=== PATIENT | female | born 1955 | race Hispanic/Latino ===

== ENCOUNTER 2017-09-03 12:58 | Emergency (ER) | payer MEDICAID ==
[2017-09-03] MEDS ORDERED: ONDANSETRON HCL 4 MG/2 ML VIAL ONE (13:30)
[2017-09-03] MEDS ORDERED: MORPHINE SULFATE 4 MG/1ML SYG ONE (13:31)
== END 2017-09-03 15:57 | disposition home or self-care (01) ==
LOC: EDH 12:58
DX: S20.212A Contusion of left front wall of thorax, initial encounter (principal); E11.9 Type 2 diabetes mellitus without complications; I10 Essential (primary) hypertension; E78.5 Hyperlipidemia, unspecified; Z79.4 Long term (current) use of insulin; W01.0XXA Fall on same level from slipping, tripping and stumbling without subsequent striking against object, initial encounter; Y93.89 Activity, other specified; Y92.89 Other specified places as the place of occurrence of the external cause; Y99.8 Other external cause status
CPT/HCPCS: 71101; 96374; 96375; 99284; J2270; J2405

== ENCOUNTER 2017-10-10 14:37 | Emergency (ER) | payer MEDICAID | END 2017-10-10 15:13 | disposition home or self-care (01) | LOC: EDH 14:37 | DX: J30.9 Allergic rhinitis, unspecified (principal); E11.9 Type 2 diabetes mellitus without complications; E78.5 Hyperlipidemia, unspecified; I10 Essential (primary) hypertension; Z79.4 Long term (current) use of insulin; Z87.891 Personal history of nicotine dependence | CPT/HCPCS: 99281 ==

== ENCOUNTER 2018-05-31 07:20 | Emergency (ER) | payer MEDICAID ==
[2018-05-31 08:05] LABS: RAPID GROUP A STREP NEGATIVE (NEGATIVE)
== END 2018-05-31 09:25 | disposition home or self-care (01) ==
LOC: EDH 07:20
DX: J30.9 Allergic rhinitis, unspecified (principal); E10.9 Type 1 diabetes mellitus without complications; I10 Essential (primary) hypertension; E78.5 Hyperlipidemia, unspecified; Z90.710 Acquired absence of both cervix and uterus; Z87.891 Personal history of nicotine dependence; Z88.7 Allergy status to serum and vaccine
CPT/HCPCS: 87804; 87880

== ENCOUNTER 2018-08-10 14:14 | Emergency (ER) | payer MEDICAID ==
[2018-08-10] MEDS ORDERED: ASPIRIN 325 MG TABLET ONE (14:30)
[2018-08-10 14:45] LABS: BASOPHILS % (AUTO) 0.5 % (0.0-5.0); EOSINOPHILS % (AUTO) 2.5 % (0.0-8.0); HEMATOCRIT 32.7 % (36-48); LYMPHOCYTES % (AUTO) 23.5 % (21.0-51.0); MEAN CORPUSCULAR HEMOGLOBIN 23.7 pg (27.0-33.0); MEAN CORPUSCULAR HGB CONC 32.3 g/dL (32.0-36.0); MEAN CORPUSCULAR VOLUME 73.6 fL (79-99); NEUTROPHILS % (AUTO) 65.5 % (40.0-77.0); NUCLEATED RED BLOOD CELLS 0.1 % (0.0-0.19); PLATELET COUNT (AUTO) 304 K/uL (130-400); RED BLOOD CELL COUNT(AUTO) 4.45 MIL/uL (4.00-5.50); RED CELL DISTRIBUTION WIDTH 19.4 % (11.0-15.5); WHITE BLOOD COUNT (AUTO) 6.9 K/uL (4.8-10.8)
[2018-08-10 15:10] LABS: CREATININE 0.6 mg/dL (0.5-1.5); POTASSIUM 3.9 mmol/L (3.5-5.1)
[2018-08-10 15:15] LABS: BILIRUBIN,TOTAL 0.4 mg/dL (0.2-1.0); TOTAL PROTEIN, SERUM 7.6 g/dL (6.0-8.3)
[2018-08-10] MEDS ORDERED: FAMOTIDINE/PF 20 MG/2 ML VIAL IV ONE (15:54)
[2018-08-10] MEDS ORDERED: IOHEXOL 350 MG/ML 100ML INFUS..BTL IV ONE (16:53)
== END 2018-08-10 19:24 | disposition home or self-care (01) ==
LOC: EDH 14:14
DX: R07.89 Other chest pain (principal); E11.9 Type 2 diabetes mellitus without complications; I10 Essential (primary) hypertension; E78.5 Hyperlipidemia, unspecified; Z90.710 Acquired absence of both cervix and uterus; Z88.7 Allergy status to serum and vaccine
CPT/HCPCS: 36415; 71046; 71275; 80053; 82550; 83690; 84484 ×2; 85025; 85378; 93005 ×2; 93970; 96374; 99285; J3490; Q9967

== ENCOUNTER 2018-10-25 10:40 | Emergency (ER) | payer MEDICAID ==
[2018-10-25 11:40] LABS: APPEARANCE,URINE CLOUDY (CLEAR); BILIRUBIN,URINE NEGATIVE (NEGATIVE); COLOR,URINE YELLOW (YELLOW); GLUCOSE, URINE (UA) >=1000 mg/dL (NEGATIVE); KETONES,URINE NEGATIVE (NEGATIVE); LEUKOCYTE ESTERASE ,URINE NEGATIVE (NEGATIVE); NITRATE,URINE NEGATIVE (NEGATIVE); OCCULT BLOOD,URINE NEGATIVE (NEGATIVE); PH,URINE 7.5 (5.0-8.0); PROTEIN,URINE NEGATIVE (NEGATIVE); UROBILINOGEN,URINE 0.2 mg/dL (0.2-1.0)
[2018-10-25 11:42] LABS: BASOPHILS % (AUTO) 0.5 % (0.0-5.0); EOSINOPHILS % (AUTO) 1.6 % (0.0-8.0); HEMATOCRIT 33.8 % (36-48); LYMPHOCYTES % (AUTO) 20.7 % (21.0-51.0); MEAN CORPUSCULAR HEMOGLOBIN 24.1 pg (27.0-33.0); MEAN CORPUSCULAR HGB CONC 32.2 g/dL (32.0-36.0); MEAN CORPUSCULAR VOLUME 74.6 fL (79-99); MONOCYTES % (AUTO) 6.9 % (3.0-13.0); NEUTROPHILS % (AUTO) 70.3 % (40.0-77.0); PLATELET COUNT (AUTO) 302 K/uL (130-400); RED BLOOD CELL COUNT(AUTO) 4.53 MIL/uL (4.00-5.50); RED CELL DISTRIBUTION WIDTH 17.2 % (11.0-15.5); WHITE BLOOD COUNT (AUTO) 6.9 K/uL (4.8-10.8)
[2018-10-25 11:49] LABS: BACTERIA,URINE Many /HPF (None Seen); RBC,URINE 0-1 /HPF (0-1)
[2018-10-25 11:55] LABS: ALBUMIN 3.1 g/dL (3.5-5.0); BILIRUBIN,TOTAL 0.5 mg/dL (0.2-1.0); POTASSIUM 4.5 mmol/L (3.5-5.1)
[2018-10-25 11:59] LABS: CREATININE 0.7 mg/dL (0.5-1.5)
[2018-10-25] MEDS ORDERED: SODIUM CHLORIDE 0.9% 1000ML 1,000 ML IV ONE (13:09)
== END 2018-10-25 14:48 | disposition home or self-care (01) ==
LOC: EDH 10:40
DX: E11.65 Type 2 diabetes mellitus with hyperglycemia (principal); I10 Essential (primary) hypertension; E78.5 Hyperlipidemia, unspecified; Z87.891 Personal history of nicotine dependence; Z98.890 Other specified postprocedural states; Z88.7 Allergy status to serum and vaccine; Z79.4 Long term (current) use of insulin
CPT/HCPCS: 36415; 80053; 81001; 82550; 82948 ×2; 84484; 85025; 93005; 96360; 99285; J7030

== ENCOUNTER 2018-12-23 06:57 | Emergency (ER) | payer OTHER ==
[2018-12-23 07:38] LABS: BASOPHILS % (AUTO) 0.4 % (0.0-5.0); EOSINOPHILS % (AUTO) 1.8 % (0.0-8.0); LYMPHOCYTES % (AUTO) 21.8 % (21.0-51.0); MEAN CORPUSCULAR HEMOGLOBIN 23.9 pg (27.0-33.0); MEAN CORPUSCULAR HGB CONC 31.8 g/dL (32.0-36.0); MEAN CORPUSCULAR VOLUME 75.3 fL (79-99); MONOCYTES % (AUTO) 7.1 % (3.0-13.0); NEUTROPHILS % (AUTO) 68.9 % (40.0-77.0); PLATELET COUNT (AUTO) 322 K/uL (130-400); RED BLOOD CELL COUNT(AUTO) 4.65 MIL/uL (4.00-5.50); RED CELL DISTRIBUTION WIDTH 18.8 % (11.0-15.5); WHITE BLOOD COUNT (AUTO) 7.5 K/uL (4.8-10.8)
[2018-12-23 07:53] LABS: CREATININE 0.6 mg/dL (0.5-1.5); POTASSIUM 4.2 mmol/L (3.5-5.1)
[2018-12-23 07:55] LABS: BILIRUBIN,TOTAL 0.4 mg/dL (0.2-1.0); TOTAL PROTEIN, SERUM 7.5 g/dL (6.0-8.3)
[2018-12-23] MEDS ORDERED: SODIUM CHLORIDE 0.9% 1000ML 1,000 ML IV ONE (08:12)
[2018-12-23 10:23] LABS: APPEARANCE,URINE Clear (CLEAR); BILIRUBIN,URINE Negative (NEGATIVE); COLOR,URINE Yellow (YELLOW); GLUCOSE, URINE (UA) Negative (NEGATIVE); KETONES,URINE Negative (NEGATIVE); LEUKOCYTE ESTERASE ,URINE Small (NEGATIVE); NITRATE,URINE Negative (NEGATIVE); OCCULT BLOOD,URINE Negative (NEGATIVE); PH,URINE 5.5 (5.0-8.0); PROTEIN,URINE Negative (NEGATIVE)
[2018-12-23 10:27] LABS: BACTERIA,URINE Rare /HPF (None Seen); RBC,URINE 0-1 /HPF (0-1); SQUAMOUS EPITHELIAL CELL,UR Rare /HPF (0-2); WBC,URINE 0-1 /HPF (0-1)
== END 2018-12-23 11:34 | disposition home or self-care (01) ==
LOC: EDH 06:57
DX: N30.00 Acute cystitis without hematuria (principal); E11.9 Type 2 diabetes mellitus without complications; I10 Essential (primary) hypertension; E78.5 Hyperlipidemia, unspecified; Z98.84 Bariatric surgery status; Z79.4 Long term (current) use of insulin; Z88.7 Allergy status to serum and vaccine
CPT/HCPCS: 36415; 74176; 80053; 81001; 83690; 84484; 85025; 93005; 99285; J7030

== ENCOUNTER 2019-05-31 08:33 | Emergency (ER) | payer SELFPAY ==
[2019-05-31 09:03] LABS: BASOPHILS % (AUTO) 0.3 % (0.0-5.0); EOSINOPHILS % (AUTO) 1.8 % (0.0-8.0); HEMATOCRIT 37.1 % (36-48); LYMPHOCYTES % (AUTO) 19.8 % (21.0-51.0); MEAN CORPUSCULAR HEMOGLOBIN 24.1 pg (27.0-33.0); MEAN CORPUSCULAR HGB CONC 30.5 g/dL (32.0-36.0); MEAN CORPUSCULAR VOLUME 79.1 fL (79-99); NEUTROPHILS % (AUTO) 69.8 % (40.0-77.0); PLATELET COUNT (AUTO) 276 K/uL (130-400); RED BLOOD CELL COUNT(AUTO) 4.69 MIL/uL (4.00-5.50); RED CELL DISTRIBUTION WIDTH 16.3 % (11.0-15.5); WHITE BLOOD COUNT (AUTO) 7.3 K/uL (4.8-10.8)
[2019-05-31 09:08] LABS: CREATININE 0.7 mg/dL (0.5-1.5); POTASSIUM 4.2 mmol/L (3.5-5.1)
[2019-05-31 09:16] LABS: APPEARANCE,URINE CLEAR (CLEAR); BILIRUBIN,URINE NEGATIVE (NEGATIVE); COLOR,URINE YELLOW (YELLOW); GLUCOSE, URINE (UA) NEGATIVE (NEGATIVE); KETONES,URINE NEGATIVE (NEGATIVE); LEUKOCYTE ESTERASE ,URINE TRACE (NEGATIVE); NITRATE,URINE NEGATIVE (NEGATIVE); OCCULT BLOOD,URINE SMALL (NEGATIVE); PH,URINE 5.5 (5.0-8.0); PROTEIN,URINE TRACE mg/dL (NEGATIVE)
[2019-05-31 09:28] LABS: BACTERIA,URINE Few /HPF (None Seen)
[2019-05-31 09:29] LABS: MUCUS,URINE Rare LPF (None Seen); SQUAMOUS EPITHELIAL CELL,UR Many /HPF (0-2)
[2019-05-31] MEDS ORDERED: CEPHALEXIN 500 MG CAPSULE ONE (10:00)
[2019-05-31] MEDS ORDERED: PHENAZOPYRIDINE HCL 200 MG TABLET ONE (10:01)
== END 2019-05-31 10:06 | disposition home or self-care (01) ==
LOC: EDH 08:33
DX: N39.0 Urinary tract infection, site not specified (principal); E11.9 Type 2 diabetes mellitus without complications; E78.5 Hyperlipidemia, unspecified; I10 Essential (primary) hypertension; Z88.7 Allergy status to serum and vaccine
CPT/HCPCS: 36415; 80048; 81001; 85025; 87088

== ENCOUNTER 2019-07-08 08:30 | Emergency (ER) | payer SELFPAY | END 2019-07-08 08:51 | disposition home or self-care (01) | LOC: EDH 08:30 | DX: T78.49XA Other allergy, initial encounter (principal); I10 Essential (primary) hypertension; E11.9 Type 2 diabetes mellitus without complications; E78.5 Hyperlipidemia, unspecified; Z88.7 Allergy status to serum and vaccine; Z90.710 Acquired absence of both cervix and uterus; X58.XXXA Exposure to other specified factors, initial encounter ==

== ENCOUNTER 2024-08-10 15:02 | Emergency (ER) | payer OTHER ==
[~2024-08-10] VITALS: Ht 165.1 cm; Wt 132.0 kg
[~2024-08-10 15:02] MED LIST: EMPA1TAB7 PO; MULT-1250 PO; SEMA1PEN3 SQ; VITA-300 PO
--- NOTE | 2024-08-10 15:43 | EKG ---
[facility] Test Date: 2024-08-10 Test Time: 15:41:24 Pat Name: HUGH ROBBINS Department: ED Room: Gender: F Doctor Of Nurse Anesthesia: 08 : 1955 Requested By: SHORTY GOEL Order Number: [id number] Reading MD: Porfirio Kolb Measurements Intervals [place] Rate: 79 P: 6 WA: 157 QRS: -82 QRSD: 145 T: 34 QT: 420 QTc: 482 Interpretive Statements Sinus rhythm RBBB and LAFB Probable left ventricular hypertrophy Compared to ECG 09/17/2023 18:51:42 No significant changes Electronically Signed On 08-10-2024 21:13:37 CDT by Porfirio Kolb Please click the below link to view image of tracing.
[2024-08-10 15:46] LABS: BASOPHILS # (AUTO) 0.02 K/uL (0.00-0.20); BASOPHILS % (AUTO) 0.3 % (0.0-5.0); EOSINOPHILS % (AUTO) 1.3 % (0.0-8.0); HEMATOCRIT 40.4 % (36-48); IMMATURE GRANULOCYTE ABSOLUTE 0.03 K/uL (0-1); LYMPHOCYTES # (AUTO) 1.4 K/uL (1.0-4.8); LYMPHOCYTES % (AUTO) 18.1 % (21.0-51.0); MEAN CORPUSCULAR HEMOGLOBIN 26.9 pg (27.0-33.0); MEAN CORPUSCULAR HGB CONC 30.9 g/dL (32.0-36.0); MEAN CORPUSCULAR VOLUME 86.9 fL (79-99); MONOCYTES # (AUTO) 0.5 K/uL (0.1-1.0); NEUTROPHILS # (AUTO) 5.6 K/uL (1.8-7.7); NEUTROPHILS % (AUTO) 73.9 % (40.0-77.0); PLATELET COUNT (AUTO) 338 K/uL (130-400); RED BLOOD CELL COUNT(AUTO) 4.65 MIL/uL (4.00-5.50); RED CELL DISTRIBUTION WIDTH 15.9 % (11.0-15.5); WHITE BLOOD COUNT (AUTO) 7.5 K/uL (4.8-10.8)
[2024-08-10 15:54] LABS: CREATININE 0.7 mg/dL (0.5-1.0); POTASSIUM 4.2 mmol/L (3.5-5.1)
[2024-08-10 16:00] LABS: ALBUMIN 3.1 g/dL (3.5-5.0); BILIRUBIN,TOTAL 0.8 mg/dL (0.2-1.0); TOTAL PROTEIN, SERUM 7.5 g/dL (6.0-8.3)
--- NOTE | 2024-08-10 16:25 | NUR ---
PT JUST NOW PLACED IN MY ED BED 11
[2024-08-10 16:36] LABS: APPEARANCE,URINE CLEAR (CLEAR); BILIRUBIN,URINE NEGATIVE (NEGATIVE); COLOR,URINE YELLOW (YELLOW); GLUCOSE, URINE (UA) >=1000 mg/dL (NEGATIVE); KETONES,URINE NEGATIVE (NEGATIVE); LEUKOCYTE ESTERASE ,URINE NEGATIVE Leu/uL (NEGATIVE); NITRATE,URINE NEGATIVE (NEGATIVE); OCCULT BLOOD,URINE NEGATIVE (NEGATIVE); PH,URINE 6.5 (5.0-8.0); PROTEIN,URINE NEGATIVE (NEGATIVE); UROBILINOGEN,URINE 3 mg/dL (0.2-1.0)
[2024-08-10 16:37] LABS: ADD UA MICROSCOPIC YES
[2024-08-10 16:38] LABS: SQUAMOUS EPITHELIAL CELL,UR FEW /HPF (0-2)
[2024-08-10] MEDS: ondanSETRON 4MG INJ IVP ONE (16:56)
[2024-08-10] MEDS: LACTATED RINGERS 1000ML 1,000 ML IV ONE (16:56)
[2024-08-10] MEDS: LIDOCAINE HCL 2% VISCOUS 15 ML UDCUP PO ONE (16:56)
[2024-08-10] MEDS: PANTOPrazole 40 MG/VIAL IVP ONE (16:56)
[2024-08-10] MEDS: MAG/ALUM/SIMETH 30 ML UDCUP PO ONE (16:56)
--- NOTE | 2024-08-10 17:37 | NUR ---
PT PENDING TO GO TO CT SCAN
--- NOTE | 2024-08-10 18:33 | ERN ---
General Chief Complaint: Abdominal Pain Stated Complaint: ABDOMINAL PAIN Time Seen by MD: 15:04 Source: patient History of Present Illness Initial Comments Patient is a 69-year-old female coming in to be evaluated for epigastric pain. Patient states that the epigastric pain began earlier today. She also states that she has been having Allergies: Coded Allergies: No Known Drug Allergies (Unverified Allergy, Unknown, 10/19/18) Home Meds Reported Medications Semaglutide (Ozempic) 1 Mg/0.75 Ml (4 Mg/3 Ml) Pen.injctr, 1 MG SQ QWEEK for 30 Days, #3 ML 0 Refills 07/26/24 Empagliflozin/Metformin HCl (Synjardy 12.5-1,000 mg Tablet) 12.5 Mg-1,000 Mg Tablet, 1 EACH PO DAILY, TAB 07/26/24 Multivit-Min/Iron/FA/Vit K/Lut (Centrum Silver Women Tablet) 8 Mg Iron-400 Mcg- 50 Mcg-300 Mcg Tablet, 1 TAB PO DAILY for 30 Days, #30 TAB 0 Refills 07/26/24 Cholecalciferol (Vitd3)/Vit K2 (D3 Plus K2 Dots 1,000 Unit Tab) 25 Mcg (1000 Unit)-90 Mcg Tab.rapdis, 1 TAB PO DAILY for 30 Days, #30 TAB 0 Refills 07/26/24 Past Medical History Past Medical History: Diabetes-Type II, GERD, Hypertension Past Surgical History: None, Bariatric Surgery Surgical History Other: CATARACT ROS Dictation CONSTITUTIONAL: No chills, no fever, no weakness, no diaphoresis, no malaise. HEAD/FACE: No signs of trauma. EENT: No eye pain, no blurred vision, no tearing, no double vision, no ear pain, no ear discharge, no nose pain, no nasal congestion, no throat pain, no throat swelling, no mouth pain. RESPIRATORY: No cough, no orthopnea, no SOB, no stridor, no wheezing. CARDIOVASCULAR: No chest pain, no edema, no palpitations, no syncope. GASTROINTESTINAL/ABDOMINAL: abdominal pain, no constipation, no diarrhea, no nausea, no vomiting. GENITOURINARY: No abnormal discharge, no dysuria, no frequent urination, no hematuria. No complaints of pain in the genitals. MUSCULOSKELETAL: No back pain, no gout, no joint pain, no joint swelling, no muscle pain, no muscle stiffness, no neck pain. INTEGUMENTARY: No change in color, no change in hair/nails, no dryness, no lesion, no lumps, no rash. NEUROLOGICAL/PSYCH: No anxiety, not depressed, no emotional problem, no headache, no numbness, no pre-existing deficit, no history of seizures, no tremors, no weakness. HEMATOLOGIC/LYMPHATIC: Not anemic, no history of blood clots, no apparent bleeding, no bruising, glands not swollen. All Systems Negative, Except as Noted. Physical Exam Physical Exam Dictation VITAL SIGNS: Reviewed. GENERAL APPEARANCE: Alert, oriented x3, no acute distress, obese. HEAD AND FACE: Non-traumatic. EYES: PERRL, pink conjunctivas, eyelid no trauma, anterior chamber clear. EARS: Pinnas intact and no signs of trauma or erythema. Ear canals clear and no discharge. TMs no erythema. NOSE: No discharge, no bleeding. OROPHARYNX: Mouth normal, teeth no caries, tongue pink. Pharynx clear, no erythema. Tonsils no exudates, no abscesses noted. Mucous membrane moist. NECK: Supple, non-tender, no thyromegaly, no masses, no JVD, no bruits. BREAST: Deferred. CHEST: No tenderness, no crepitus, no paradoxical movement, no retractions. LUNGS: Clear, well-ventilated, symmetric, no rales, no wheezing, no rhonchi, no stridor, good breath sounds bilaterally. HEART: Regular rate, regular rhythm, no murmur, no gallops. VASCULAR: No peripheral edema. ABDOMEN: Soft, positive bowel sounds, nondistended, no guarding, epigastric r, no rebound, no masses no hepatomegaly, no splenomegaly, no Galvez's sign, no hernias. RECTAL: Deferred. GENITAL: Deferred. NEUROLOGICAL: Normal speech, gross motor function intact, gross sensory function intact. MUSCULOSKELETAL: Neck nontender, full range of motion, back nontender, full range of motion. EXTREMITIES: Nontender, full range of motion. SKIN: Color pink, dry, no turgor, no rash, no lacerations, no abrasions, no c ontusions. LYMPHATICS: Deferred. Results Laboratory and Microbiology Lab and Micro Result Laboratory Tests Test 08/10/24 15:32 08/10/24 15:37 White Blood Count 7.5 K/uL (4.8-10.8) Red Blood Count 4.65 MIL/uL (4.00-5.50) Hemoglobin 12.5 g/dL (12.0-16.0) Hematocrit 40.4 % (36-48) Mean Corpuscular Volume 86.9 fL (79-99) Mean Corpuscular Hemoglobin 26.9 pg (27.0-33.0) L Mean Corpuscular Hemoglobin Concent 30.9 g/dL (32.0-36.0) L Red Cell Distribution Width 15.9 % (11.0-15.5) H Platelet Count 338 K/uL (130-400) Mean Platelet Volume 8.4 fL (7.5-10.5) Immature Granulocyte % (Auto) 0.4 % (0-1) Neutrophils (%) (Auto) 73.9 % (40.0-77.0) Lymphocytes (%) (Auto) 18.1 % (21.0-51.0) L Monocytes (%) (Auto) 6.0 % (3.0-13.0) Eosinophils (%) (Auto) 1.3 % (0.0-8.0) Basophils (%) (Auto) 0.3 % (0.0-5.0) Neutrophils # (Auto) 5.6 K/uL (1.8-7.7) Lymphocytes # (Auto) 1.4 K/uL (1.0-4.8) Monocytes # (Auto) 0.5 K/uL (0.1-1.0) Eosinophils # (Auto) 0.10 K/uL (0.00-0.70) Basophils # (Auto) 0.02 K/uL (0.00-0.20) Absolute Immature Granulocyte (auto 0.03 K/uL (0-1) Nucleated Red Blood Cells 0.0 % (0.0-0.19) Red Blood Cell Morphology See comments Sodium Level 138 mmol/L (136-145) Potassium Level 4.2 mmol/L (3.5-5.1) Chloride Level 102 mmol/L (101-111) Carbon Dioxide Level 31 mmol/L (21-32) Blood Urea Nitrogen 12 mg/dL (7-18) Creatinine 0.7 mg/dL (0.5-1.0) Glomerular Filtration Rate Calc 94 mL/min (>90) Random Glucose 174 mg/dL (70-105) H Total Calcium 9.1 mg/dL (8.5-10.1) Total Bilirubin 0.8 mg/dL (0.2-1.0) Aspartate Amino Transf (AST/SGOT) 95 U/L (10-37) H Alanine Aminotransferase (ALT/SGPT) 57 U/L (12-78) Alkaline Phosphatase 116 U/L (50-136) Total Creatine Kinase 40 U/L (21-232) Troponin I High Sensitivity 5.7 ng/L (4-50) Total Protein 7.5 g/dL (6.0-8.3) Albumin 3.1 g/dL (3.5-5.0) L Lipase 120 U/L (16-77) H Urine Color YELLOW (YELLOW) Urine Appearance CLEAR (CLEAR) Urine pH 6.5 (5.0-8.0) Urine Specific [place] 1.038 (1.001-1.031) Urine Protein NEGATIVE mg/dL (NEGATIVE) Urine Glucose (UA) >=1000 mg/dL (NEGATIVE) H Urine Ketones NEGATIVE mg/dL (NEGATIVE) Urine Occult Blood NEGATIVE (NEGATIVE) Urine Nitrate NEGATIVE (NEGATIVE) Urine Bilirubin NEGATIVE mg/dL (NEGATIVE) Urine Urobilinogen 3 mg/dL (0.2-1.0) H Urine Leukocyte Esterase NEGATIVE [place]/uL Urine RBC 2-5 /HPF (0-1) H Urine WBC 2-5 /HPF (0-1) H Urine Squamous Epithelial Cells FEW /HPF (0-2) Urine Bacteria None /HPF (None Seen) Labs Reviewed?: Yes EKG/XRAY/US/CT/MRI EKG Comment 08/10/2024 time 3:41 p.m. Ventricular rate 79 Sinus rhythm [place] [address] wave elevation or depression CT Scan Comment [place] [id number] [place] [id number] IMAGING REPORT Signed PATIENT: HUGH ROBBINS MR#: [id number] : 1955 SEX: F AGE: 69 LOCATION: ED ORDER [id number] STATUS: REG REPORT#: [id number] SERVICE [id number] REASON: epigastric pain ORDERING PHYSICIAN: SHORTY GOEL MD PROCEDURE: ABD PEL WO - CT ABDOMEN/PELVIS W/O CONTRAST CT ABDOMEN WITHOUT CONTRAST. CT PELVIS WITHOUT CONTRAST. INDICATION: Epigastric abdominal pain TECHNIQUE: Routine transaxial imaging using 5 mm slice thickness through the abdomen and pelvis without the administration of IV contrast. Thin slice reconstructions are also provided. Coronal and sagittal reformatted images acquired for interpretation. CT was performed with one or more of the following dose reduction techniques: Automated exposure control, adjustment of the mA and/or kV according to patient size, or use of iterative reconstruction technique. COMPARISON: 07/25/2024 FINDINGS: ON NONCONTRAST IMAGING: ABDOMEN: Heart size is normal.. Trace pericardial fluid noted. Visible lung bases are clear. No abnormal right renal calcifications, hydronephrosis, perinephric inflammation, or proximal hydroureter detected. Small aggregate of nonobstructing calculi at the lower pole of the left kidney, largest calculus measuring up to 1.3 cm. 7.1 cm simple cyst at the upper portion of the left kidney. Small simple cyst at the upper pole of the right kidney. The liver is normal in size and smooth in contour without biliary duct dilation. The spleen is normal in size and attenuation. Gallbladder is distended and several miniscule calcifications within the gallbladder lumen dependently. The pancreas appears normal without pancreatic duct dilation. The adrenal glands appear normal. No significant abdominal, retrocrural or retroperitoneal adenopathy noted. No evidence for intra-abdominal free air or organized fluid collection. No aortic aneurysmal dilation identified. Gastric sleeve surgery changes. PELVIS: No abnormal calcifications within the urinary bladder or distal ureters. No evidence for free air or organized pelvic fluid collection. No significant pelvic adenopathy detected. Several diverticula along the distal colon. Terminal ileum appears unremarkable. The appendix appears normal. Uterus is absent. Multiple pelvic phleboliths noted. Mild thoracolumbar spondylosis. IMPRESSION: Cholelithiasis and gallbladder hydrops. Nonobstructing left nephrolithiasis. Distal colonic diverticulosis. Additional minor findings and pertinent negatives as reported. DICTATED BY: MIMI RODGERS MD DATE: 08/10/241830 ELECTRONICALLY SIGNED BY: MIMI RODGERS MD DATE: 08/10/241835 [facility] MDM: Differential diagnosis: Abdominal pain, gastritis, GERD, NSTEMI Rationale: Tests considered and ordered secondary to shared decision making include: Previous outside records reviewed: Old ER visits. Risk of complication and/or morbidity or mortality of patient management: None ED Course Orders Procedure Category Date Status Time Cbc With Differential LAB 08/10/24 Complete 15:25 Comprehensive LAB 08/10/24 Complete Metabolic Panel 15:25 Urinalysis Profile LAB 08/10/24 Complete 15:25 12 Lead Ekg Tracing- EKG 08/10/24 Complete Technical 15:25 Lactated Ringers PHA 08/10/24 Complete 1000ml (Lactated 15:30 Ondansetron 4mg Inj PHA 08/10/24 Complete (Zofran 4mg Inj) 15:30 Lidocaine Hcl 2% PHA 08/10/24 Complete Viscous (Lidocaine Hcl 15:30 Mag/Alum/Simeth 30ml PHA 08/10/24 Complete (Maalox Plus 30ml) 15:30 Pantoprazole 40mg Inj PHA 08/10/24 Complete (Protonix 40mg Inj 15:30 Lipase LAB 08/10/24 Complete 15:25 Cardiac Panel LAB 08/10/24 Complete 15:25 Ct Abdomen/Pelvis W/O CT 08/10/24 Resulted Contrast 17:30 Ketorolac PHA 08/10/24 In Process Tromethamine 30mg/Ml 19:00 Current Medications Medications (Trade) Dose Ordered Sig/Geronimo Route PRN Reason Start Time Stop Time Status Last Admin Dose Admin Al Hydroxide/Mg Hydroxide (MAALox PLUS 30ML) 30 ml ONCE ONCE PO 08/10/24 15:30 08/10/24 15:31 DC 08/10/24 16:56 Ketorolac Tromethamine (toRADol) 30 mg ONCE ONCE IVP 08/10/24 19:00 08/10/24 19:01 Lactated Ringer's 1,000 ml @ 0 mls/hr ONCE ONCE IV 08/10/24 15:30 08/10/24 15:31 DC 08/10/24 16:56 Lidocaine HCl (Lidocaine HCl 2% Viscous) 10 ml ONCE ONCE PO 08/10/24 15:30 08/10/24 15:31 DC 08/10/24 16:56 Ondansetron HCl (zoFRAN 4MG INJ) 4 mg ONCE ONCE IVP 08/10/24 15:30 08/10/24 15:31 DC 08/10/24 16:56 Pantoprazole Sodium (PROTonix 40MG INJ) 40 mg ONCE ONCE IVP 08/10/24 15:30 08/10/24 15:31 DC 08/10/24 16:56 Vital Signs Date Time Temp Pulse Resp B/P (MAP) Pulse Ox O2 Delivery O2 Flow Rate FiO2 08/10/24 15:04 98.4 81 18 154/77 97 Room Air DX & DISP Disposition: Discharge Departure Impression: Primary Impression: Epigastric abdominal pain Condition: Stable Additional Instructions: FOLLOW-UP WITH PRIMARY CARE PROVIDER IN 1 TO 2 DAYS. TAKE MEDICATIONS DIRECTED HERE IN THE EMERGENCY ROOM. OKAY TO CONTINUE HOME MEDICATIONS UNLESS OTHERWISE DISCUSSED DURING YOUR VISIT IN THE EMERGENCY ROOM TODAY. RETURN TO YOUR NEAREST EMERGENCY ROOM IF SYMPTOMS WORSEN OR IF THERE IS NO IMPROVEMENT. CALL 911 IF YOU NEED IMMEDIATE ASSISTANCE. TAKE TYLENOL [id number] NEEDED AND IF NO CONTRAINDICATIONS ARE PRESENT. INCREASE ORAL HYDRATION. A WOUND CULTURE OR URINE CULTURE WAS ORDERED HERE IN THE EMERGENCY ROOM DEPARTMENT PLEASE FOLLOW-UP WITH PRIMARY CARE PROVIDER AND ADVISE THEM TO GET REPEAT PORTS FROM OUR FACILITY. IF YOU HAD ANY CLARISSA WRAP/SPLINTS THAT WERE APPLIED HERE, PLEASE DO NOT REMOVE THEM UNTIL YOU SEE YOUR PRIMARY CARE OR SPECIALTY. Referrals: Referrals: KAMI GUZMAN (PCP) Time of Disposition: 18:42 SHORTY GOEL MD Aug 10, 2024 18:33
--- NOTE | 2024-08-10 18:36 | HMCIMG ---
CT ABDOMEN WITHOUT CONTRAST. CT PELVIS WITHOUT CONTRAST. INDICATION: Epigastric abdominal pain TECHNIQUE: Routine transaxial imaging using 5 mm slice thickness through the abdomen and pelvis without the administration of IV contrast. Thin slice reconstructions are also provided. Coronal and sagittal reformatted images acquired for interpretation. CT was performed with one or more of the following dose reduction techniques: Automated exposure control, adjustment of the mA and/or kV according to patient size, or use of iterative reconstruction technique. COMPARISON: 07/25/2024 FINDINGS: ON NONCONTRAST IMAGING: ABDOMEN: Heart size is normal.. Trace pericardial fluid noted. Visible lung bases are clear. No abnormal right renal calcifications, hydronephrosis, perinephric inflammation, or proximal hydroureter detected. Small aggregate of nonobstructing calculi at the lower pole of the left kidney, largest calculus measuring up to 1.3 cm. 7.1 cm simple cyst at the upper portion of the left kidney. Small simple cyst at the upper pole of the right kidney. The liver is normal in size and smooth in contour without biliary duct dilation. The spleen is normal in size and attenuation. Gallbladder is distended and several miniscule calcifications within the gallbladder lumen dependently. The pancreas appears normal without pancreatic duct dilation. The adrenal glands appear normal. No significant abdominal, retrocrural or retroperitoneal adenopathy noted. No evidence for intra-abdominal free air or organized fluid collection. No aortic aneurysmal dilation identified. Gastric sleeve surgery changes. PELVIS: No abnormal calcifications within the urinary bladder or distal ureters. No evidence for free air or organized pelvic fluid collection. No significant pelvic adenopathy detected. Several diverticula along the distal colon. Terminal ileum appears unremarkable. The appendix appears normal. Uterus is absent. Multiple pelvic phleboliths noted. Mild thoracolumbar spondylosis. IMPRESSION: Cholelithiasis and gallbladder hydrops. Nonobstructing left nephrolithiasis. Distal colonic diverticulosis. Additional minor findings and pertinent negatives as reported.
[2024-08-10] MEDS: ketOROlac 30MG VIAL (30MG/ML) IVP ONE (18:48)
[2024-08-10] MEDS ORDERED: PANT40TA55 PO (18:55)
[2024-08-10 19:03] VITALS: BP 138/69; PULSE 89; RESP 17; TEMP 98.5; O2SAT 100
== END 2024-08-10 19:09 | disposition home or self-care (01) ==
LOC: EDH 15:02
DX: R10.13 Epigastric pain (principal); E11.9 Type 2 diabetes mellitus without complications; I10 Essential (primary) hypertension; K21.9 Gastro-esophageal reflux disease without esophagitis; Z79.84 Long term (current) use of oral hypoglycemic drugs; Z79.85 Long-term (current) use of injectable non-insulin antidiabetic drugs
CPT/HCPCS: 99285; 74176; 96374; 96375; 96361; 82550; 84484; 80053; 83690; 85025; 81001; 36415; 93005; J1885; J7120; J2405; J2470